=== PATIENT | female | born 1985 | race Caucasian/White ===

== ENCOUNTER 2016-10-30 03:28 | Emergency (ER) | payer MEDICAID ==
[2016-10-30] MEDS ORDERED: Sodium Chloride 0.9% 1,000 ML IV ONE (03:43)
--- NOTE | 2016-10-30 03:43 | C.PDOC ---
History Of Present Illness pt presents with some llq abdominal discomfort. Pt is and unsure how many weeks. pt is 1 miscarriage. No f/c/n/v. tolerating po Time Seen by Provider: 10/30/16 03:42 Chief Complaint (Nursing): Abdominal Pain History Per: Patient History/Exam Limitations: no limitations Onset/Duration Of Symptoms: Hrs Current Symptoms Are (Timing): Still Present Context: Other Severity: Mild Pain Scale Rating Of: 2 Location Of Pain/Discomfort: LLQ Radiation Of Pain To:: None Quality Of Discomfort: Dull Associated Symptoms: denies: Fever, Chills, Nausea, Vomiting Exacerbating Factors: Movement Alleviating Factors: None Last Bowel Movement: Yesterday Recent travel outside of the [place]: No Additional History Per: Patient Past Medical History Reviewed: Historical Data, Nursing Documentation, Vital Signs Vital Signs: Last Vital Signs Temp 98.4 F 10/30/16 03:38 Pulse 84 10/30/16 03:38 Resp 14 10/30/16 03:38 BP 98/62 L 10/30/16 03:38 Pulse Ox 98 10/30/16 03:50 Family History: States: No Known Family Hx - Social History Hx Tobacco Use: Yes Hx Alcohol Use: No Hx Substance Use: No - Immunization History Hx Tetanus Toxoid Vaccination: No Hx Influenza Vaccination: No Hx Pneumococcal Vaccination: No Review Of Systems Constitutional: Negative for: Fever, Chills Cardiovascular: Negative for: Chest Pain Respiratory: Negative for: Shortness of Breath Gastrointestinal: Positive for: Abdominal Pain. Negative for: Nausea, Vomiting Genitourinary: Negative for: Dysuria Musculoskeletal: Negative for: Back Pain Skin: Negative for: Rash, Lesions Neurological: Negative for: Weakness Psych: Negative for: Anxiety Physical Exam - Physical Exam Appears: Non-toxic, No Acute Distress Skin: Warm, Dry Head: Normacephalic Eye(s): bilateral: Normal Inspection Oral Mucosa: Moist Neck: Supple Cardiovascular: Rhythm Regular Respiratory: No Rales, No Rhonchi, No Wheezing Gastrointestinal/Abdominal: Soft, Tenderness (mild llq), No Distention, No Guarding Back: No CVA Tenderness Extremity: No Tenderness Extremity: Bilateral: Atraumatic, No Pedal Edema, Normal Color And Temperature, Normal ROM Pulses: Left Dorsalis Pedis: Normal, Right Dorsalis Pedis: Normal Neurological/Psych: Oriented x3, Normal Speech, Normal Cognition Gait: Steady ED Course And Treatment - Laboratory Results Result Diagrams: 10/30/16 04:10 10/30/16 04:10 O2 Sat by Pulse Oximetry: 98 Pulse Ox Interpretation: Normal Against Medical Advice - AMA Patient Left Against Medical Advice: The patient declines admission to the hospital and wishes to leave the Emergency Department. This action is against my medical advice. This decision was made with informed refusal. The patient was told that admission to the hospital is necessary. Explanation of the reasons why were discussed. The risks of leaving were explained to the patient and include, but are not limited to, worsening of known or currently unknown conditions, permanent disability and from undiagnosed or untreated conditions. The patient has the capacity to make this informed decision and understands my explanation of the current medical problem and risks of leaving. The patient voluntarily accepts these risks and signed an AMA form documenting our conversation. The patient was given the opportunity to ask questions and reconsider. The patient was encouraged to return to the Emergency Department at any time for further care. Disposition Counseled Patient/Family Regarding: Studies Performed, Diagnosis, Need For Followup - Disposition Disposition: AGAINST MEDICAL ADVICE Disposition Time: 03:43 Condition: FAIR Instructions: Abdominal Pain in (ED) - Clinical Impression Clinical Impression: Abdominal pain during
[2016-10-30 04:15] LABS: SQUAMOUS EPITHIAL 1 /hpf (0-5); URINE BACTERIA RARE (<OCC); URINE BILIRUBIN NEGATIVE (NEGATIVE); URINE BLOOD NEGATIVE (NEGATIVE); URINE CLARITY Clear (Clear); URINE COLOR Straw (YELLOW); URINE GLUCOSE (UA) NORMAL (Normal); URINE LEUKOCYTE ESTERASE NEG Leu/uL (Negative); URINE NITRATE NEGATIVE (NEGATIVE); URINE PROTEIN NEGATIVE (NEGATIVE); URINE UROBILINOGEN NORMAL mg/dL (0.2-1.0)
[2016-10-30 04:16] LABS: MEAN CORPUSCULAR HEMOGLOBIN 31.4 pg (27.0-31.0); MEAN CORPUSCULAR HGB CONC 33.5 g/dL (33.0-37.0); MEAN PLATELET VOLUME 8.8 fL (7.2-11.7); RED CELL DISTRIBUTION WIDTH 11.9 % (11.5-14.5)
[2016-10-30 04:18] LABS: ALBUMIN 3.8 g/dL (3.5-5.0)
[2016-10-30 04:19] LABS: INR 0.9; PROTHROMBIN TIME 9.9 SECONDS (9.7-12.2)
[2016-10-30 04:20] LABS: BASO # 0.1 K/uL (0.0-0.2); BASO % 0.8 % (0.0-2.0); EOS # 0.1 K/uL (0.0-0.7); GFR AFRICAN-AMERICAN > 60; GFR NON-AFRICAN AMERICAN > 60; HEMOGLOBIN 13.5 g/dL (11.0-16.0); LYMPH # 3.1 K/uL (1.0-4.3); LYMPH % 22.6 % (20.0-40.0); MEAN CELL VOLUME 93.8 fL (81.0-99.0); MONO # 0.8 K/uL (0.0-0.8); MONO % 5.5 % (0.0-10.0); NEUT # 9.6 K/uL (1.8-7.0); NEUT % 70.1 % (50.0-75.0); RBC 4.29 Mil/uL (3.80-5.20); WHITE BLOOD COUNT 13.6 K/uL (4.8-10.8)
[2016-10-30 04:21] LABS: ALB/GLOB RATIO 1.4 (1.0-2.1); ALT/SGPT 25 U/L (9-52); AST/SGOT 22 U/L (14-36); BLOOD UREA NITROGEN 14 mg/dL (7-17); CALCIUM 8.8 mg/dl (8.6-10.4); LIPASE 45 U/L (23-300)
[2016-10-30 04:43] VITALS: BP 92/55; PULSE 78; RESP 16; TEMP 98.7; O2SAT 100
== END 2016-10-30 04:50 | disposition left against medical advice (07) ==
LOC: C.ER 03:28
DX: O26.891 Other specified pregnancy related conditions, first trimester (principal); R10.32 Left lower quadrant pain; Z3A.00 Weeks of gestation of pregnancy not specified

== ENCOUNTER 2017-12-30 14:24 | Emergency (ER) | payer MEDICAID ==
[2017-12-30 14:38] VITALS: BP 114/78; PULSE 71; RESP 20; TEMP 98.5; O2SAT 98
[2017-12-30] MEDS ORDERED: Tetanus/Diphtheria Toxoids 0.5 ml Syringe IM ONE ×2 (14:46→14:59)
[2017-12-30] MEDS ORDERED: Lidocaine 2% Inj (20ml) INFIL ONE (14:46)
--- NOTE | 2017-12-30 14:48 | C.PDOC ---
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 Pt states that there was bleeding at the time of the injury. Denies having weakness, obvious deformity, and sensory or vascular deficits. Time Seen by Provider: 12/30/17 14:26 Chief Complaint (Nursing): Abnormal Skin Integrity History Per: Patient History/Exam Limitations: no limitations Onset/Duration Of Symptoms: Hrs Current Symptoms Are (Timing): Still Present Severity: Moderate Past Medical History Reviewed: Historical Data, Nursing Documentation, Vital Signs Vital Signs: Last Vital Signs Temp 98.5 F 12/30/17 14:31 Pulse 71 12/30/17 14:31 Resp 20 12/30/17 14:31 BP 114/78 12/30/17 14:31 Pulse Ox 98 12/30/17 15:52 - Medical History PMH: No Chronic Diseases Surgical History: Family History: States: No Known Family Hx - Social History Hx Tobacco Use: Yes Hx Alcohol Use: Yes Hx Substance Use: No - Immunization History Hx Tetanus Toxoid Vaccination: No Hx Influenza Vaccination: No Hx Pneumococcal Vaccination: No Review Of Systems Except As Marked, All Systems Reviewed And Found Negative. Skin: Positive for: Other (right index finger laceration) Neurological: Negative for: Weakness, Numbness Physical Exam - Physical Exam Appears: Well, Non-toxic, No Acute Distress Skin: Normal Color, Warm, Other ((+) C-shape laceration over dorsal aspect Right 2nd PIPJ, cutaneous, mild bloody oozing noted. No wound FB.) Extremity: Normal ROM (Right index finger, no neurovascular deficits distally to injury), No Tenderness, Capillary Refill (less than 2sec to Right index), No Deformity, No Swelling Neurological/Psych: Oriented x3, Normal Speech, Normal Motor, Normal Sensation, Normal Reflexes ED Course And Treatment O2 Sat by Pulse Oximetry: 98 (RA) Pulse Ox Interpretation: Normal Progress Note: On re-eavl, pt is afebrile, hemodynamicay stable. Non-toxic. Right hand: laceration over dorsal aspect Right 2nd PIPJ repaired with utures # without difficulty. FAROM, no neurovascular deficits. tetanus given. Pt advised on wound care. ref. to f/u with PMD in 2 dyas for wound care. retrun to Ed if any worsening or new changes. Laceration - Laceration Repair Right index Wound Length (In cm): 2cm Description Of Wound: Clean (C-shape, cutaneous) Anesthesia: Lidocaine 2% Wound Examination: Irrigated With Saline, No FB With Wound Exploration, No Tendon Injury With Wound Exploration Wound Closure: Suture (#6) Suture Technique And Material Used: Interrupted, Nylon (5-0) Wound Complexity: Simple Disposition Counseled Patient/Family Regarding: Diagnosis, Need For Followup, Rx Given - Disposition Referrals: Jay Jay Bowman, GORDON, PEARL FISHERMAN [Advanced Practice Nurse] - Disposition: HOME/ ROUTINE Disposition Time: 14:51 Condition: STABLE Additional Instructions: Keep wound dry for 3-4 days Suture removal in 7-10 days Follow up with PMD in 2 days for wound re-evaluation as need return to ED if any sign of infection Instructions: Laceration Repair With Stitches (DC) Forms: [employer] ([place]) - Clinical Impression Clinical Impression: Laceration of finger - 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 - Scribe Statement The provider has reviewed the documentation as recorded by the Candi Robertson Provider Attestation All medical record entries made by the Cesaribjessica were at my direction and personally dictated by me. I have reviewed the chart and agree that the record accurately reflects my personal performance of the history, physical exam, medical decision making, and the department course for this patient. I have also personally directed, reviewed, and agree with the discharge instructions and disposition.
[2017-12-30] MEDS ORDERED: Lidocaine 2% MPF (5 ml) Inj ONE (14:50)
[2017-12-30] MEDS ORDERED: Bacitracin 500 Units/gm Oint Foilpak UD ONE (15:26)
== END 2017-12-30 15:40 | disposition home or self-care (01) ==
LOC: C.ER 14:24
DX: S61.210A Laceration without foreign body of right index finger without damage to nail, initial encounter (principal); W26.0XXA Contact with knife, initial encounter; Y93.G3 Activity, cooking and baking; Z23 Encounter for immunization; Z72.0 Tobacco use

== ENCOUNTER 2018-01-08 08:37 | Emergency (ER) | payer MEDICAID ==
[2018-01-08 08:46] VITALS: BP 114/73; PULSE 77; RESP 16; TEMP 98.6; O2SAT 100
--- NOTE | 2018-01-08 09:23 | C.PDOC ---
History Of Present Illness 32 yo female, presents for removal of sutures to left 4th digits, placed 9 days ago. states 1 fell out. no erythema or drainage. also reports left lower dental pain, due to see dentist next week. Time Seen by Provider: 01/08/18 09:03 Chief Complaint (Nursing): Suture/Staple Removal Past Medical History Reviewed: Historical Data, Nursing Documentation, Vital Signs Vital Signs: Last Vital Signs Temp 98.6 F 01/08/18 08:44 Pulse 77 01/08/18 08:44 Resp 16 01/08/18 08:44 BP 114/73 01/08/18 08:44 Pulse Ox 100 01/08/18 08:44 Surgical History: Family History: States: Unknown Family Hx - Social History Hx Tobacco Use: Yes Hx Alcohol Use: No Hx Substance Use: No - Immunization History Hx Tetanus Toxoid Vaccination: No Hx Influenza Vaccination: No Hx Pneumococcal Vaccination: No Review Of Systems ENT: Positive for: Mouth Pain Physical Exam - Physical Exam Appears: Well, No Acute Distress Skin: Normal Color, Warm, Dry Eye(s): bilateral: Normal Inspection, PERRL, EOMI Nose: Normal Teeth: Caries (left lower molar, mild ttp, no buccal swelling, speaking full sentences) Throat: Normal Neck: Normal Cardiovascular: Rhythm Regular Respiratory: Normal Breath Sounds Gastrointestinal/Abdominal: Normal Exam Back: Normal Inspection Extremity: Normal ROM, Other (left finger lac c/d/i) ED Course And Treatment O2 Sat by Pulse Oximetry: 100 Medical Decision Making Medical Decision Making: sutures removed/dental pain - antibiotics outpt f/u Disposition - Disposition Disposition: HOME/ ROUTINE Disposition Time: 09:22 Condition: STABLE Additional Instructions: follow up in clinic or with your doctor. return to er with worsening symptoms or concerns. Prescriptions: Amoxicillin [Amoxil 500 mg Cap] 500 mg PO TID #21 cap Instructions: Staple Removal, Dental Pain (DC) - Clinical Impression Clinical Impression: Removal of suture, Pain, dental
== END 2018-01-08 09:39 | disposition home or self-care (01) ==
LOC: C.ER 08:37
DX: Z48.02 Encounter for removal of sutures (principal); K08.89 Other specified disorders of teeth and supporting structures; Z72.0 Tobacco use